=== PATIENT | male | born 1960 | race African-American/Black ===

== ENCOUNTER 2018-03-10 13:35 | Emergency (ER) | payer MEDICARE, OTHER ==
[2018-03-10 13:43] VITALS: RESP 18
[2018-03-10] MEDS ORDERED: ACETAMINOPHEN TAB 500 MG TAB PO STA (13:54)
[2018-03-10] MEDS ORDERED: NAPROXEN 250 MG TAB PO STA (13:54)
[2018-03-10] MEDS ORDERED: diphenhydrAMINE 50 MG CAP PO STA (13:54)
[2018-03-10] MEDS ORDERED: PROCHLORPERAZINE 10 MG TAB PO STA (14:04)
--- NOTE | 2018-03-10 14:45 | ED ---
General Adult HPI - General Chief complaint: Recheck/Abnormal Lab/Rx Stated complaint: High BP Time Seen by Provider: 03/10/18 13:44 Source: patient, RN notes reviewed, old records reviewed Mode of arrival: ambulatory Limitations: no limitations - History of Present Illness Initial comments: this is a 49-year-old male the ER for evaluation of headache and hypertension. Patient states he still has mild headache currently hypertension is much improved after giving Catapres at [facility]. Patient has going to multiple substance abuse and substance withdrawal medications at [facility]. Patient denies any head trauma. No recent fevers - Related Data Home Medications Medication Instructions Recorded Confirmed Acetaminophen [Tylenol Arthritis] 650 mg PO Q4H PRN 03/10/18 03/10/18 Aspirin EC [Ecotrin Low Dose] 81 mg PO DAILY 03/10/18 03/10/18 Calmag 2 tab PO TID PRN 03/10/18 03/10/18 Chlorpheniramine Maleate 4 mg PO Q6H PRN 03/10/18 03/10/18 [Chlor-Trimeton] Fluticasone Nasal Austin [Flonase 1 - 2 spr EA NOSTRIL DAILY PRN 03/10/18 Nasal [place]] Ibuprofen [Motrin] 600 mg PO Q6H PRN 03/10/18 03/10/18 Ibuprofen [Motrin] 800 mg PO BID 03/10/18 03/10/18 Lipase/Protease/Amylase [Pancreaze 1 cap PO BID 03/10/18 03/10/18 4,200 Unit Cap] Loratadine [Claritin] 10 mg PO DAILY 03/10/18 03/10/18 Metoprolol Tartrate [Lopressor] 25 mg PO BID 03/10/18 03/10/18 Multivitamins, Thera [Multivitamin 1 tab PO DAILY 03/10/18 03/10/18 (formulary)] Potassium Chloride [K-Tab ER] 10 meq PO DAILY 03/10/18 03/10/18 Ranitidine HCl [Zantac] 150 mg PO BID 03/10/18 03/10/18 Spironolactone [Aldactone] 25 mg PO DAILY 03/10/18 03/10/18 Thiamine [Vitamin B-1] 100 mg PO DAILY 03/10/18 03/10/18 cloNIDine HCL [Catapres] 0.1 - 0.3 mg PO Q4H PRN 03/10/18 03/10/18 traZODone HCL 50 - 150 mg PO HS 03/10/18 03/10/18 Allergies Allergy/AdvReac Type Severity Reaction Status Date / Time Sulfa (Sulfonamide AdvReac Unknown Verified 03/10/18 13:54 Antibiotics) Review of Systems ROS Statement: Those systems with pertinent positive or pertinent negative responses have been documented in the HPI. ROS Other: All systems not noted in ROS Statement are negative. Past Medical History Past Medical History: Hypertension History of Any Multi-Drug Resistant Organisms: None Reported Past Surgical History: Orthopedic Surgery, Tonsillectomy Past Psychological History: No Psychological Hx Reported Smoking Status: Current every day smoker Past Alcohol Use History: None Reported General Exam Limitations: no limitations General appearance: alert, in no apparent distress Head exam: Present: atraumatic, normocephalic, normal inspection Eye exam: Present: normal appearance, PERRL, EOMI. Absent: scleral icterus, conjunctival injection, periorbital swelling ENT exam: Present: normal exam, mucous membranes moist Neck exam: Present: normal inspection. Absent: tenderness, meningismus, lymphadenopathy Respiratory exam: Present: normal lung sounds bilaterally. Absent: respiratory distress, wheezes, rales, rhonchi, stridor Cardiovascular Exam: Present: regular rate, normal rhythm, normal heart sounds. Absent: systolic murmur, diastolic murmur, rubs, gallop, clicks GI/Abdominal exam: Present: soft, normal bowel sounds. Absent: distended, tenderness, guarding, rebound, rigid Extremities exam: Present: normal inspection, full ROM, normal capillary refill. Absent: tenderness, pedal edema, joint swelling, calf tenderness Back exam: Present: normal inspection Neurological exam: Present: alert, oriented X3, CN II-XII intact Psychiatric exam: Present: normal affect, normal mood Skin exam: Present: warm, dry, intact, normal color. Absent: rash Course Vital Signs 03/10/18 03/10/18 13:38 14:41 Temperature 98.7 F Pulse Rate 67 67 Respiratory 18 18 Rate Blood Pressure 148/70 176/80 O2 Sat by Pulse 98 98 Oximetry Medical Decision Making - Medical Decision Making 49 male the ER for evaluation of headache although mild in nature. Patient does have history of headaches, patient does have history of substance abuse and gout at [facility] for substance evaluation of abuse evaluation. Hypertension is much improved currently and patient can be discharged home - Radiology Data Radiology results: report reviewed (CT brain negative for acute disease), image reviewed Disposition Clinical Impression: Headache, Hypertension Disposition: HOME SELF-CARE Condition: Good Instructions: Acute Headache (ED) Is patient prescribed a controlled substance at d/c from ED?: No Referrals: Agustin Swain MD [Primary Care Provider] - 1-2 days
--- NOTE | 2018-03-10 15:30 | CT ---
EXAMINATION TYPE: CT brain wo con DATE OF EXAM: 03/10/2018 HISTORY: High blood pressure with headache CT DLP: 943.8 mGycm. Automated Exposure Control for Dose Reduction was Utilized. TECHNIQUE: CT scan of the head is performed without contrast. COMPARISON: None. FINDINGS: There is no acute intracranial hemorrhage or midline shift identified. There is diffuse v entricular and sulcal prominence consistent with diffuse age-related cerebral atrophy. There is low- attenuation in the periventricular white matter consistent with chronic small vessel ischemic change. Old fracture deformity medial wall left orbit is present. The globes are intact bilaterally. Visuali zed paranasal sinuses are clear. IMPRESSION: No acute intracranial hemorrhage or midline shift. There is mild to minimal diffuse age -related cerebral atrophy and chronic small vessel ischemic change noted.
[2018-03-10 16:19] VITALS: BP 170/82; PULSE 61; TEMP 97.6
== END 2018-03-10 16:17 | disposition home or self-care (01) ==
LOC: EC 13:35
DX: I10 Essential (primary) hypertension (principal); R51 Headache; F17.200 Nicotine dependence, unspecified, uncomplicated; Z88.2 Allergy status to sulfonamides; Z79.82 Long term (current) use of aspirin; Z79.899 Other long term (current) drug therapy; Z86.59 Personal history of other mental and behavioral disorders
CPT/HCPCS: 70450; 99284; S0183

== ENCOUNTER → 2019-01-26 | Outpatient (CLI) | payer OTHER ==
[2019-01-26 14:41] LABS: Basophils % (A) 0 %; Eosinophils # (A) 0.4 k/uL (0-0.7); Eosinophils % (A) 5 %; HCT 36.3 % (39.0-53.0); HGB 11.3 gm/dL (13.0-17.5); Hypochromasia Moderate; Lymphocytes # (A) 2.4 k/uL (1.0-4.8); Lymphocytes % (A) 33 %; MCH 31.4 pg (25.0-35.0); MCHC 31.2 g/dL (31.0-37.0); MCV 100.5 fL (80.0-100.0); Macrocytosis Slight; Mean Platelet Volume 8.2; Monocytes # (A) 0.5 k/uL (0-1.0); Monocytes % (A) 6 %; Neutrophils # (A) 3.8 k/uL (1.3-7.7); Neutrophils % (A) 52 %; Platelet Count 180 k/uL (150-450); RBC 3.62 m/uL (4.30-5.90); RDW 14.4 % (11.5-15.5); WBC 7.3 k/uL (3.8-10.6)
[2019-01-26 18:59] LABS: Albumin 4.4 g/dL (3.80-4.90); Albumin/Globulin Ratio 1.91 (1.60-3.17); Anion Gap 8.5 mmol/L (4.00-12.00); BUN/Creat Ratio 18.24 Ratio (12.00-20.00); Calcium 9.2 mg/dL (8.7-10.3); Carbon Dioxide 17.5 mmol/L (21.6-31.8); Globulin 2.3 g/dL (1.6-3.3); Non-African American GFR(CKD) 43.2 (60.0-200.0); Potassium 4.7 mmol/L (3.5-5.5); Total Bilirubin 0.4 mg/dL (0.2-1.2); Total Protein 6.7 g/dL (6.2-8.2)
[2019-01-26 19:41] LABS: T4, Free (Free Thyroxine) 0.8 ng/dL (0.80-1.80)
[2019-01-28 01:59] LABS: Iron Saturation 34.07 (15.00-50.00)
== END | disposition home or self-care (01) ==
LOC: LABWHC1 14:08
PROVIDERS: ATTEND Internal Medicine
DX: I10 Essential (primary) hypertension (principal); R53.83 Other fatigue
CPT/HCPCS: 36415; 80053; 82607; 83540; 83550; 84153; 84439; 84443; 84481; 85025

== ENCOUNTER → 2019-08-23 | Outpatient (CLI) | payer OTHER ==
[2019-08-23 12:57] LABS: HCT 39.7 % (39.0-53.0); HGB 12.6 gm/dL (13.0-17.5); MCH 31.2 pg (25.0-35.0); MCHC 31.7 g/dL (31.0-37.0); MCV 98.4 fL (80.0-100.0); Mean Platelet Volume 9.2; Platelet Count 162 k/uL (150-450); RBC 4.03 m/uL (4.30-5.90); RDW 13.6 % (11.5-15.5); WBC 6.4 k/uL (3.8-10.6)
[2019-08-23 20:00] LABS: African American GFR (CKD) 69.2 (60.0-200.0); Albumin 4.5 g/dL (3.80-4.90); Albumin/Globulin Ratio 2.05 (1.60-3.17); Anion Gap 7.1 mmol/L (4.00-12.00); BUN/Creat Ratio 12.31 Ratio (12.00-20.00); Calcium 9.4 mg/dL (8.7-10.3); Carbon Dioxide 21.9 mmol/L (21.6-31.8); Globulin 2.2 g/dL (1.6-3.3); Non-African American GFR(CKD) 59.7 (60.0-200.0); Potassium 4.3 mmol/L (3.5-5.5); Total Bilirubin 0.3 mg/dL (0.2-1.2); Total Protein 6.7 g/dL (6.2-8.2)
== END | disposition home or self-care (01) ==
LOC: LABWHC1 11:05
PROVIDERS: ATTEND Internal Medicine
DX: I10 Essential (primary) hypertension (principal); D64.9 Anemia, unspecified; N28.9 Disorder of kidney and ureter, unspecified
CPT/HCPCS: 36415; 80053; 82607; 83540; 84439; 84443; 84481; 85027

== ENCOUNTER 2023-03-03 09:29 | Emergency (ER) | payer OTHER ==
[2023-03-03 09:49] VITALS: BP 155/80; PULSE 72; RESP 20; TEMP 98
--- NOTE | 2023-03-03 10:12 | ED ---
Recheck HPI - General Chief Complaint: Recheck/Abnormal Lab/Rx Stated Complaint: Med Refill Time Seen by Provider: 03/03/23 09:44 Source: patient, RN notes reviewed Mode of arrival: ambulatory Limitations: no limitations - History of Present Illness Initial Comments: 62-year-old male presents emergency Department with chief complaint needing medication refill. Patient states he went to Dr. Murillo's office for revisit he is prescription for sent over to the pharmacy but when arrived the pharmacy the he was told that they cannot fill his prescriptions due to the prescriber - Related Data Previous Rx's Medication Instructions Recorded Aspirin 81 mg PO DAILY #30 tab 03/03/23 Famotidine [Pepcid] 20 mg PO DAILY #30 tab 03/03/23 Ferrous Sulfate [Feosol] 325 mg PO DAILY #30 tab 03/03/23 Ibuprofen [Motrin] 800 mg PO TID PRN #30 tab 03/03/23 Lipase/Protease/Amylase [Pancreaze 1 cap PO TID #90 cap 03/03/23 4,200 Unit Cap] Metoprolol Tartrate [Lopressor] 25 mg PO BID #60 tab 03/03/23 Spironolactone [Aldactone] 25 mg PO DAILY #30 tab 03/03/23 amLODIPine [Norvasc] 5 mg PO DAILY #30 tab 03/03/23 Allergies Allergy/AdvReac Type Severity Reaction Status Date / Time Sulfa (Sulfonamide AdvReac Unknown Verified 03/03/23 09:55 Antibiotics) Review of Systems ROS Statement: Those systems with pertinent positive or pertinent negative responses have been documented in the HPI. ROS Other: All systems not noted in ROS Statement are negative. Past Medical History Past Medical History: Hypertension History of Any Multi-Drug Resistant Organisms: None Reported Past Surgical History: Orthopedic Surgery, Tonsillectomy Past Psychological History: No Psychological Hx Reported Smoking Status: Current every day smoker Past Alcohol Use History: None Reported Past Drug Use History: None Reported General Exam Limitations: no limitations General appearance: alert, in no apparent distress Head exam: Present: atraumatic, normocephalic, normal inspection Eye exam: Present: normal appearance, PERRL, EOMI. Absent: scleral icterus, conjunctival injection, periorbital swelling Neck exam: Present: normal inspection, full ROM. Absent: tenderness, meningismus, lymphadenopathy Respiratory exam: Present: normal lung sounds bilaterally. Absent: respiratory distress, wheezes, rales, rhonchi, stridor Cardiovascular Exam: Present: regular rate, normal rhythm, normal heart sounds. Absent: systolic murmur, diastolic murmur, rubs, gallop, clicks Course Vital Signs 03/03/23 09:38 Temperature 98 F Pulse Rate 72 Respiratory 20 Rate Blood Pressure 155/80 O2 Sat by Pulse 100 Oximetry Medical Decision Making - Medical Decision Making Was pt. sent in by a medical professional or institution (JANET Wheeler, MOTH PROOFER, urgent care, hospital, or correction...) When possible be specific @ -No Did you speak to anyone other than the patient for history (EMS, parent, family, police, friend...)? What history was obtained from this source @ -No Did you review nursing and triage notes (agree or disagree)? Why? @ -I reviewed and agree with nursing and triage notes Were old charts reviewed (outside hosp., previous admission, EMS record, old EKG, old radiological studies, urgent care reports/EKG's, correction records)? Report findings @ -No old charts were reviewed Differential Diagnosis (chest pain, altered mental status, abdominal pain women, abdominal pain men, vaginal bleeding, weakness, fever, dyspnea, syncope, headache, dizziness, GI bleed, back pain, seizure, CVA, palpatations, mental health, musculoskeletal)? @ -Medication refill, hypertension EKG interpreted by me (3pts min.). @ -None X-rays interpreted by me (1pt min.). @ -None done CT interpreted by me (1pt min.). @ -None done U/S interpreted by me (1pt. min.). @ -None done What testing was considered but not performed or refused? (CT, X-rays, U/S, labs)? Why? @ -None What meds were considered but not given or refused? Why? @ -None Did you discuss the management of the patient with other professionals (professionals i.e. JANET Wheeler, MOTH PROOFER, lab, RT, psych nurse, administrator social welfare, photonics engineer, teacher, community cultural development officer, foster care case manager)? Give summary @ -No Was smoking cessation discussed for >3mins.? @ -No Was critical care preformed (if so, how long)? @ -No Were there social determinants of health that impacted care today? How? (Homelessness, low income, unemployed, alcoholism, drug addiction, transportation, low edu. Level, literacy, decrease access to med. care, [facility], rehab)? @ -No Was there de-escalation of care discussed even if they declined (Discuss DNR or withdrawal of care, Hospice)? DNR status @ -No What co-morbidities impacted this encounter? (DM, HTN, Smoking, COPD, CAD, Cancer, CVA, ARF, Chemo, Hep., AIDS, mental health diagnosis, sleep apnea, morbid obesity)? @ -None Was patient admitted / discharged? Hospital course, mention meds given and route, prescriptions, significant lab abnormalities, going to OR and other pertinent info. @ -Discharge patient was given medication refill patient is advised follow-up with your PCP return parameters were discussed. Undiagnosed new problem with uncertain prognosis? @ -No Drug Therapy requiring intensive monitoring for toxicity (Heparin, Nitro, Insulin, Cardizem)? @ -No Were any procedures done? @ -No Diagnosis/symptom? @ -[Medication refill, hypertension, GERD Acute, or Chronic, or Acute on Chronic? @ -Acute Uncomplicated (without systemic symptoms) or Complicated (systemic symptoms)? @ -Uncomplicated. Side effects of treatment? @ -No Exacerbation, Progression, or Severe Exacerbation? @ -No Poses a threat to life or bodily function? How? (Chest pain, [place], [place], pneumonia, PE, COPD, DKA, ARF, appy, cholecystitis, CVA, Diverticulitis, Homicidal, Suicidal, threat to staff... and all critical care pts) @ -No Disposition Clinical Impression: Encounter for medication refill, Hypertension Disposition: HOME SELF-CARE Condition: Stable Additional Instructions: Please return to the Emergency Department if symptoms worsen or any other concerns. Prescriptions: Spironolactone [Aldactone] 25 mg PO DAILY #30 tab Aspirin 81 mg PO DAILY #30 tab Ferrous Sulfate [Feosol] 325 mg PO DAILY #30 tab Metoprolol Tartrate [Lopressor] 25 mg PO BID #60 tab Ibuprofen [Motrin] 800 mg PO TID PRN #30 tab PRN Reason: Pain amLODIPine [Norvasc] 5 mg PO DAILY #30 tab Lipase/Protease/Amylase [Noah Cook 4,200 Unit Cap] 1 cap PO TID #90 cap Famotidine [Pepcid] 20 mg PO DAILY #30 tab Is patient prescribed a controlled substance at d/c from ED?: No Referrals: Nonstaff,Physician [Primary Care Provider] - 1-2 days Time of Disposition: 10:16
== END 2023-03-03 10:28 | disposition home or self-care (01) ==
LOC: EC 09:29
DX: I10 Essential (primary) hypertension (principal); Z76.0 Encounter for issue of repeat prescription; F17.200 Nicotine dependence, unspecified, uncomplicated; Z88.2 Allergy status to sulfonamides
CPT/HCPCS: 99281; 99283

== ENCOUNTER 2023-03-06 12:47 | Emergency (ER) | payer OTHER ==
--- NOTE | 2023-03-06 14:19 | ED ---
General Adult HPI - General Chief complaint: Recheck/Abnormal Lab/Rx Stated complaint: Med Refill Time Seen by Provider: 03/06/23 13:36 Source: patient Mode of arrival: ambulatory Limitations: no limitations - History of Present Illness Initial comments: 62-year-old male presents to ED with a chief complaint of medication problem. Patient states was getting his Pancrease filled and notes pharmacy would not give him the prescription due to insurance requiring a prior authorization. Currently, denies any symptoms. Denies chest pain, shortness breath, abdominal pain, nausea, vomiting, diarrhea, urinary changes. No other complaints. - Related Data Previous Rx's Medication Instructions Recorded Aspirin 81 mg PO DAILY #30 tab 03/03/23 Famotidine [Pepcid] 20 mg PO DAILY #30 tab 03/03/23 Ferrous Sulfate [Feosol] 325 mg PO DAILY #30 tab 03/03/23 Ibuprofen [Motrin] 800 mg PO TID PRN #30 tab 03/03/23 Lipase/Protease/Amylase [Pancreaze 1 cap PO TID #90 cap 03/03/23 4,200 Unit Cap] Metoprolol Tartrate [Lopressor] 25 mg PO BID #60 tab 03/03/23 Spironolactone [Aldactone] 25 mg PO DAILY #30 tab 03/03/23 amLODIPine [Norvasc] 5 mg PO DAILY #30 tab 03/03/23 Allergies Allergy/AdvReac Type Severity Reaction Status Date / Time Sulfa (Sulfonamide AdvReac Unknown Verified 03/06/23 13:08 Antibiotics) Review of Systems ROS Statement: Those systems with pertinent positive or pertinent negative responses have been documented in the HPI. ROS Other: All systems not noted in ROS Statement are negative. Past Medical History Past Medical History: Hypertension History of Any Multi-Drug Resistant Organisms: None Reported Past Surgical History: Orthopedic Surgery, Tonsillectomy Past Psychological History: No Psychological Hx Reported Smoking Status: Current every day smoker Past Alcohol Use History: None Reported Past Drug Use History: None Reported General Exam Limitations: no limitations General appearance: alert, in no apparent distress Neck exam: Present: normal inspection Respiratory exam: Present: normal lung sounds bilaterally Cardiovascular Exam: Present: regular rate, normal rhythm GI/Abdominal exam: Present: soft (No Tenderness to palpation. No rebound guarding or rigidity.) Back exam: Present: normal inspection Neurological exam: Present: alert, oriented X3 Skin exam: Present: warm, dry Course Vital Signs 03/06/23 13:08 Temperature 97.3 F L Pulse Rate 94 Respiratory 16 Rate O2 Sat by Pulse 100 Oximetry Medical Decision Making - Medical Decision Making Was pt. sent in by a medical professional or institution (JANET Wheeler, SENIOR INTERACTIVE DEVELOPER, urgent care, hospital, or snf...) When possible be specific @ -No Did you speak to anyone other than the patient for history (EMS, parent, family, police, friend...)? What history was obtained from this source @ -No Did you review nursing and triage notes (agree or disagree)? Why? @ -I reviewed and agree with nursing and triage notes Were old charts reviewed (outside hosp., previous admission, EMS record, old EKG, old radiological studies, urgent care reports/EKG's, snf records)? Report findings @ -No old charts were reviewed Differential Diagnosis (chest pain, altered mental status, abdominal pain women, abdominal pain men, vaginal bleeding, weakness, fever, dyspnea, syncope, headache, dizziness, GI bleed, back pain, seizure, CVA, palpatations, mental health, musculoskeletal)? @ -not applicable EKG interpreted by me (3pts min.). @ -None X-rays interpreted by me (1pt min.). @ -None done CT interpreted by me (1pt min.). @ -None done U/S interpreted by me (1pt. min.). @ -None done What testing was considered but not performed or refused? (CT, X-rays, U/S, labs)? Why? @ -None What meds were considered but not given or refused? Why? @ -None Did you discuss the management of the patient with other professionals (nichole bonner i.e. JANET Wheeler, SENIOR INTERACTIVE DEVELOPER, lab, RT, psych nurse, healthcare social worker, furniture designer, teacher, admissions officer, bottle caser)? Give summary @ -No Was smoking cessation discussed for >3mins.? @ -No Was critical care preformed (if so, how long)? @ -No Were there social determinants of health that impacted care today? How? (Homelessness, low income, unemployed, alcoholism, drug addiction, transportation, low edu. Level, literacy, decrease access to med. care, senior living, rehab)? @ -No Was there de-escalation of care discussed even if they declined (Discuss DNR or withdrawal of care, Hospice)? DNR status @ -No What co-morbidities impacted this encounter? (DM, HTN, Smoking, COPD, CAD, Cancer, CVA, ARF, Chemo, Hep., AIDS, mental health diagnosis, sleep apnea, morbid obesity)? @ -None Was patient admitted / discharged? Hospital course, mention meds given and route, prescriptions, significant lab abnormalities, going to OR and other pertinent info. @ -Discharge 62-year-old male presenting to the ED due to needing prior authorization. Patient was advised to contact his PCP for this. At present, patient has no other complaints. Patient discharged home in stable condition. Discussed return precautions with patient verbalizes agreement. Undiagnosed new problem with uncertain prognosis? @ -No Drug Therapy requiring intensive monitoring for toxicity (Heparin, Nitro, Insulin, Cardizem)? @ -No Were any procedures done? @ -No Diagnosis/symptom? @ -Medication problem Acute, or Chronic, or Acute on Chronic? @ -Acute Uncomplicated (without systemic symptoms) or Complicated (systemic symptoms)? @ -Uncomplicated Side effects of treatment? @ -No Exacerbation, Progression, or Severe Exacerbation? @ -No Poses a threat to life or bodily function? How? (Chest pain, [place], [place], pneumonia, PE, COPD, DKA, ARF, appy, cholecystitis, CVA, Diverticulitis, Homicidal, Suicidal, threat to staff... and all critical care pts) @ -No Disposition Clinical Impression: Encounter for issue of repeat prescription Disposition: HOME SELF-CARE Condition: Good Additional Instructions: Please return to the Emergency Department if symptoms worsen or any other concerns. Please call your PCP to resolve insurance issue. Is patient prescribed a controlled substance at d/c from ED?: No Referrals: Agustin Swain MD [Primary Care Provider] - 1-2 days Time of Disposition: 14:21
[2023-03-06 14:52] VITALS: BP 151/70; PULSE 65; RESP 18; TEMP 98.2
== END 2023-03-06 14:48 | disposition home or self-care (01) ==
LOC: EC 12:47
DX: Z76.0 Encounter for issue of repeat prescription (principal); I10 Essential (primary) hypertension; F17.200 Nicotine dependence, unspecified, uncomplicated; Z88.2 Allergy status to sulfonamides
CPT/HCPCS: 99283